=== PATIENT | female | born 1955 | race Caucasian/White ===

== ENCOUNTER 2020-10-24 13:15 | Outpatient (CLI) | payer MEDICARE, OTHER | END 2020-10-24 13:16 | disposition home or self-care (01) | LOC: CSHRAD 13:15 | PROVIDERS: ATTEND Internal Medicine Rheumatology | DX: M25.561 Pain in right knee (principal); M25.562 Pain in left knee; M25.572 Pain in left ankle and joints of left foot; M17.0 Bilateral primary osteoarthritis of knee ==